=== PATIENT | male | born 1980 | race Caucasian/White ===

== ENCOUNTER 2017-07-17 01:38 | Emergency (ER) | payer MEDICARE, OTHER ==
[~2017-07-17] VITALS: Ht 185.4 cm; Wt 86.2 kg
[2017-07-17 01:42] VITALS: BP 154/98
[2017-07-17 04:58] LABS: Basophils # (auto) 0.1 uL; Basophils % (auto) 0.7 % (0.0-2.0); CONDITION Y; DEFINITIVE SEE PRINTOUT; Eosinophils # (auto) 0 uL; Hematocrit 44.2 % (41.0-53.0); Hemoglobin 14.4 g/dL (13.5-17.5); Lymphocytes # (auto) 1.6 uL; Lymphocytes % (auto) 9.6 % (10.0-50.0); Mean Corpuscular Hemoglobin 26.8 pg (28.0-32.0); Mean Corpuscular Hgb Conc. 32.6 g/dL (32.0-36.0); Mean Corpuscular Volume 82.1 fL (80.0-100.0); Mean Platelet Volume 8.2 fL (7.4-10.4); Monocytes # (auto) 0.8 uL; Monocytes % (auto) 5.1 % (0.0-12.0); Neutrophils # (auto) 13.7 uL; Neutrophils % (auto) 84.6 % (37.0-80.0); Platelet Count (auto) 419 10^3/uL (140-450); Red Cell Distribution Width 14.6 % (11.6-16.0); White Blood Cell 16.2 10^3/uL (4.4-10.8)
[2017-07-17 05:19] LABS: Potassium 4.4 mmol/L (3.5-5.1)
[2017-07-17 05:25] LABS: Albumin 4.4 g/dL (3.4-5.0); BUN/Creatinine Ratio 16.8; Calcium 8.5 mg/dL (8.5-10.1)
[2017-07-17 05:27] LABS: Bilirubin, Total 1.2 mg/dL (0.2-1.0)
== END 2017-07-17 06:27 | disposition left against medical advice (07) ==
LOC: ER 01:38 → EDUNIT# 01:38 → EDBD 01:38 → ER 06:15
DX: K62.5 Hemorrhage of anus and rectum (principal); K92.1 Melena; Z53.21 Procedure and treatment not carried out due to patient leaving prior to being seen by health care provider
CPT/HCPCS: 36415; 80053; 85025